=== PATIENT | male | born 1965 | race Hispanic/Latino ===

== ENCOUNTER 2019-01-18 10:59 | Emergency (ER) | payer BC ==
[2019-01-18 11:20] LABS: Absolute Lymphocytes (CBC) 1.9 K/uL (0.7-4.9); Absolute Monocytes 0.4 K/uL (0.1-1.3); Absolute Neutrophil 2.1 K/uL (1.8-8.0); Basophils % 0.9 % (0-1.3); Eosinophils % 6.7 % (0-4.4); Hematocrit 44.9 % (39.6-49.0); Lymphocytes % 40.5 % (15.3-44.8); MPV 9.5 fL (7.6-11.3); Monocytes % 7.9 % (3.3-12.3); RBC Red Blood Cell Count 4.94 M/uL (4.33-5.43)
[2019-01-18 11:23] LABS: Protime INR 0.99
--- NOTE | 2019-01-18 11:41 | RAD REPORT ---
EXAM DESCRIPTION: RAD - Chest Single View - 01/18/2019 11:30 am CLINICAL HISTORY: HYPERTENSION Chest pain. COMPARISON: No comparisons FINDINGS: Portable technique limits examination quality. The lungs are grossly clear. The heart is upper limit of normal in size. No displaced fractures. IMPRESSION: No acute intrathoracic process suspected.
[2019-01-18 11:43] LABS: ALT/SGPT 58 U/L (12-78); AST/SGOT 41 U/L (15-37); Alkaline Phosphatase 107 U/L (45-117); BUN Blood Urea Nitrogen 12 mg/dL (7-18); Bicarbonate 25 mmol/L (21-32); Bilirubin Direct 0.1 mg/dL (0-0.2); Bilirubin Total 0.6 mg/dL (0.2-1.0); Glucose Level 161 mg/dL (74-106); NT PRO-BNP 12 pg/mL (<125); Potassium 3.4 mmol/L (3.5-5.1); Protein, Total 8.4 g/dL (6.4-8.2); Sodium Level 144 mmol/L (136-145); Troponin (Emerg Dept Use Only) < 0.02 ng/mL (0.0-0.045)
[2019-01-18] MEDS ORDERED: NA CHLORIDE 0.9% 1,000 ML ONE (12:00)
[2019-01-18] MEDS ORDERED: ASPIRIN 325 MG TAB ONE (12:00)
[2019-01-18] MEDS ORDERED: LISINOPRIL 10 MG TAB ONE (12:00)
[2019-01-18] MEDS ORDERED: POTASSIUM 25 MEQ EFFERV TAB ONE (13:03)
--- NOTE | 2019-01-18 13:43 | ER ---
Nurse's Notes [facility] Name: Darrell Adams Age: 53 yrs Sex: Male : 1965 Arrival Date: 01/18/2019 Time: 11:01 Bed 7 Private MD: Diagnosis: Acute transient dizziness Presentation: 01/18 11:02 Presenting complaint: EMS states: GENERALIZED WEAKNESS FOR AN HOUR. Transition of care: bp patient was not received from another setting of care. Onset of symptoms was January 18, 2019 at 10:00. Risk Assessment: Do you want to hurt yourself or someone else? Patient reports no desire to harm self or others. Initial Sepsis Screen: Does the patient meet any 2 criteria? No. Patient's initial sepsis screen is negative. Does the patient have a suspected source of infection? No. Patient's initial sepsis screen is negative. Care prior to arrival: Glucose check: 177. 11:02 Method Of Arrival: EMS: [facility] bp 11:02 Acuity: NOBLE 3 bp Triage Assessment: 11:06 General: Appears in no apparent distress. comfortable, obese, Behavior is cooperative, bp appropriate for age, anxious. Pain: Denies pain. EENT: No deficits noted. Neuro: Level of Consciousness is awake, alert, obeys commands, Oriented to person, place, time, situation, Appropriate for age. Cardiovascular: Rhythm is sinus rhythm. Respiratory: Airway is patent Respiratory effort is even, unlabored, Respiratory pattern is regular, symmetrical. GI: No signs and/or symptoms were reported involving the gastrointestinal system. : No signs and/or symptoms were reported regarding the genitourinary system. Derm: No deficits noted. Musculoskeletal: Circulation, motion, and sensation intact. Range of motion: intact in all extremities. Historical: - Allergies: 11:06 No Known Allergies; bp - Home Meds: 11:06 Metformin Oral [Active]; Glimepiride Oral [Active]; Ramipril Oral [Active]; bp - PMHx: 11:06 Diabetes - NIDDM; Hypertension; bp - Immunization history:: Adult Immunizations up to date. - Social history:: Smoking status: Patient/guardian denies using tobacco. - Ebola Screening: : Patient negative for fever greater than or equal to 101.5 degrees Fahrenheit, and additional compatible Ebola Virus Disease symptoms Patient denies exposure to infectious person Patient denies travel to an Ebola-affected area in the 21 days before illness onset No symptoms or risks identified at this time. - Family history:: Mother has/had hypertension, Father has/had diabetes. - Hospitalizations: : No recent hospitalization is reported. Screenin:15 Abuse screen: Denies threats or abuse. Denies injuries from another. Nutritional bp screening: No deficits noted. Tuberculosis screening: No symptoms or risk factors identified. Fall Risk None identified. Assessment: 11:10 General: Appears in no apparent distress. comfortable, obese, Behavior is cooperative, bp appropriate for age, anxious. Pain: Denies pain. Neuro: Level of Consciousness is awake, alert, obeys commands, Oriented to person, place, time, situation, Appropriate for age. Cardiovascular: No deficits noted. Respiratory: Airway is patent Respiratory effort is even, unlabored, Respiratory pattern is regular, symmetrical. GI: No signs and/or symptoms were reported involving the gastrointestinal system. : No signs and/or symptoms were reported regarding the genitourinary system. EENT: No deficits noted. Derm: No deficits noted. Musculoskeletal: Circulation, motion, and sensation intact. Range of motion: intact in all extremities. 12:55 Reassessment: IVF INFUSING, NO ACUTE S/S AT THIS TIME. bp 13:55 Reassessment: PT D/C HOME AMBULATORY WITH FAMILY, DX WITH TRANSIENT DIZZINESS. bp Vital Signs: 11:06 BP 161 / 87; Pulse 95; Resp 12; Temp 98; Pulse Ox 99% ; Weight 142.88 kg; Height 6 ft. bp 1 in. (185.42 cm); 12:26 BP 140 / 79; Pulse 75; Resp 18; Pulse Ox 96% on R/A; hj 12:53 BP 137 / 79; Pulse 80; Resp 16; Pulse Ox 97% ; bp 13:56 BP 146 / 78; Pulse 76; Resp 11; Pulse Ox 98% ; bp 11:06 Body Mass Index 41.56 (142.88 kg, 185.42 cm) bp ED Course: 11:01 Patient arrived in ED. hj 11:01 Toby Del Toro, RN is Primary Nurse. bp 11:04 Triage completed. bp 11:05 Initial lab(s) drawn, by me. Inserted saline lock: 20 gauge in right antecubital area, jb1 using aseptic technique. Blood collected. 11:06 Arm band placed on. bp 11:15 Patient has correct armband on for positive identification. Placed in gown. Bed in low bp position. Call light in reach. Side rails up X2. Adult w/ patient. 11:17 Domingo Gonzalez MD is Attending Physician. wa 11:29 XRAY Chest (1 view) In Process Unspecified. EDMS 13:41 Robin Sierra MD is Referral Physician. wa 13:54 No provider procedures requiring assistance completed. IV discontinued, intact, bp bleeding controlled, No redness/swelling at site. Pressure dressing applied. Administered Medications: 11:45 Drug: NS 0.9% 1000 ml Route: IV; Rate: 1000 ml; Site: right antecubital; bp 13:47 Follow up: IV Status: Completed infusion; IV Intake: 1000ml bp 11:45 Drug: Aspirin Chewable Tablet 324 mg Route: PO; bp 11:59 Follow up: Response: No adverse reaction bp 11:45 Drug: Lisinopril 10 mg Route: PO; bp 11:59 Follow up: Response: No adverse reaction bp 12:45 Drug: Potassium Effervescent Tablet 50 mEq Route: PO; bp 13:47 Follow up: Response: No adverse reaction bp Point of Care Testing: Blood Glucose: 11:05 Blood Glucose: 181 mg/dL; jb1 Ranges: Intake: 13:47 IV: 1000ml; Total: 1000ml. bp Outcome: 13:41 Discharge ordered by . wa 13:55 Discharged to home ambulatory, with family. bp 13:55 Condition: stable 13:55 Discharge instructions given to patient, Instructed on discharge instructions, follow up and referral plans. medication usage, Demonstrated understanding of instructions, follow-up care, medications, Prescriptions given X 1. 13:57 Patient left the ED. bp Signatures: Dispatcher [employer] EDMS Santhosh Kelly jb1 Herber Bhagat, GLORIA CASTRO Domingo Gonzalez MD MD wa Peltier, Brian RN RN bp
--- NOTE | 2019-01-18 13:43 | EDPHYS ---
Physician Documentation [facility] Name: Darrell Adams Age: 53 yrs Sex: Male : 1965 Arrival Date: 01/18/2019 Time: 11:01 Bed 7 Private MD: ED Physician Domingo Gonzalez HPI: 01/18 11:37 This 53 yrs old Male presents to ER via EMS with complaints of lightheadedness.wa 11:37 The patient presents with lightheadedness. Onset: The symptoms/episode began/occurred wa this morning. Context: occurred at home, occurred while the patient was at rest, just prior to the episode the patient experienced no apparent symptoms, per pt, noted lightheaded this AM. states checked his BG level and noted to be 200. out of his glimepride. denies GARCIA, wobbly gait, speech difficulty. denies CP or SOB. . Modifying factors: The symptoms are alleviated by nothing, the symptoms are aggravated by nothing. Associated signs and symptoms: Pertinent negatives: abdominal pain, blurred vision, chest pain, confusion, focal weakness, headache, nausea, palpitations, shortness of breath, tingling, vomiting. Severity of symptoms: At their worst the symptoms were moderate in the emergency department the symptoms have improved. Patient's baseline: Neuro: alert and fully oriented, Motor: no deficits, Ambulation: walks without assistance, Speech: normal, The patient has a previous history of HTN, DM. The patient has experienced a previous episode, last week. The patient has not recently seen a physician. states got BP checked at work and noted to be elevated. Historical: - Allergies: 11:06 No Known Allergies; bp - Home Meds: 11:06 Metformin Oral [Active]; Glimepiride Oral [Active]; Ramipril Oral [Active]; bp - PMHx: 11:06 Diabetes - NIDDM; Hypertension; bp - Immunization history:: Adult Immunizations up to date. - Social history:: Smoking status: Patient/guardian denies using tobacco. - Ebola Screening: : Patient negative for fever greater than or equal to 101.5 degrees Fahrenheit, and additional compatible Ebola Virus Disease symptoms Patient denies exposure to infectious person Patient denies travel to an Ebola-affected area in the 21 days before illness onset No symptoms or risks identified at this time. - Family history:: Mother has/had hypertension, Father has/had diabetes. - Hospitalizations: : No recent hospitalization is reported. ROS: 11:41 Constitutional: Negative for fever, chills, and weight loss, Eyes: Negative for injury, wa pain, redness, and discharge, ENT: Negative for injury, pain, and discharge, Neck: Negative for injury, pain, and swelling, Cardiovascular: Negative for chest pain, palpitations, and edema, Respiratory: Negative for shortness of breath, cough, wheezing, and pleuritic chest pain, Abdomen/GI: Negative for abdominal pain, nausea, vomiting, diarrhea, and constipation, Back: Negative for injury and pain, : Negative for injury, bleeding, discharge, and swelling, MS/Extremity: Negative for injury and deformity, Skin: Negative for injury, rash, and discoloration, Psych: Negative for depression, anxiety, suicide ideation, homicidal ideation, and hallucinations. 11:41 Neuro: Positive for dizziness, weakness, generalized, Negative for gait disturbance, headache, loss of consciousness, speech changes, syncope, tingling. 11:41 All other systems are negative. Exam: 11:42 Constitutional: This is a well developed, well nourished patient who is awake, alert, wa and in no acute distress. Head/Face: Normocephalic, atraumatic. Eyes: Pupils equal round and reactive to light, extra-ocular motions intact. Lids and lashes normal. Conjunctiva and sclera are non-icteric and not injected. Cornea within normal limits. Periorbital areas with no swelling, redness, or edema. ENT: Nares patent. No nasal discharge, no septal abnormalities noted. Tympanic membranes are normal and external auditory canals are clear. Oropharynx with no redness, swelling, or masses, exudates, or evidence of obstruction, uvula midline. Mucous membranes moist. Neck: Trachea midline, no thyromegaly or masses palpated, and no cervical lymphadenopathy. Supple, full range of motion without nuchal rigidity, or vertebral point tenderness. No Meningismus. Chest/axilla: Normal chest wall appearance and motion. Nontender with no deformity. No lesions are appreciated. Cardiovascular: Regular rate and rhythm with a normal S1 and S2. No gallops, murmurs, or rubs. Normal PMI, no JVD. No pulse deficits. Respiratory: Lungs have equal breath sounds bilaterally, clear to auscultation and percussion. No rales, rhonchi or wheezes noted. No increased work of breathing, no retractions or nasal flaring. Abdomen/GI: Soft, non-tender, with normal bowel sounds. No distension or tympany. No guarding or rebound. No evidence of tenderness throughout. Back: No spinal tenderness. No costovertebral tenderness. Full range of motion. Skin: Warm, dry with normal turgor. Normal color with no rashes, no lesions, and no evidence of cellulitis. MS/ Extremity: Pulses equal, no cyanosis. Neurovascular intact. Full, normal range of motion. Psych: Awake, alert, with orientation to person, place and time. Behavior, mood, and affect are within normal limits. 11:42 Neuro: Orientation: is normal, Mentation: is normal, Memory: is normal, Cranial nerves: grossly normal, Cerebellar function: normal finger to nose testing, heel to lassiter testing is normal, able to perform alternating rapid hand movements. Vital Signs: 11:06 BP 161 / 87; Pulse 95; Resp 12; Temp 98; Pulse Ox 99% ; Weight 142.88 kg; Height 6 ft. bp 1 in. (185.42 cm); 12:26 BP 140 / 79; Pulse 75; Resp 18; Pulse Ox 96% on R/A; hj 12:53 BP 137 / 79; Pulse 80; Resp 16; Pulse Ox 97% ; bp 13:56 BP 146 / 78; Pulse 76; Resp 11; Pulse Ox 98% ; bp 11:06 Body Mass Index 41.56 (142.88 kg, 185.42 cm) bp MDM: 11:[address] 11:42 Differential diagnosis: cardiac arrhythmia, CVA, generalized weakness, hypovolemia, wa idiopathic dizziness, TIA, vertigo. 13:38 Data reviewed: vital signs, nurses notes. Test interpretation: by ED physician or wa midlevel provider: EKG: interp by la: HR 84. nml sinus. nml axis. no acute dysrhythmic changes. Labs noted for mild hyperglycemia and hypokalemia. Response to treatment: the patient's symptoms have resolved after treatment. ED course: pt received fluid bolus. 10 mg po lisinopril. replaced K. pt walked in ED. symptoms complete resolution of symptoms. stated he's hungry and would like to go get something to eat. will d/c with close f/u. 13:45 Test interpretation: by ED physician or midlevel provider: CXR negative. wa 01/18 11:09 Order name: Basic Metabolic Panel; Complete Time: 12:22 bp 01/18 11:09 Order name: CBC with Diff; Complete Time: 11:43 bp 01/18 11:09 Order name: LFT's; Complete Time: 12:22 bp 01/18 11:09 Order name: Magnesium; Complete Time: 12:22 bp 01/18 11:09 Order name: NT PRO-BNP; Complete Time: 12:22 bp 01/18 11:09 Order name: PT-INR; Complete Time: 13:45 bp 01/18 11:09 Order name: Troponin (emerg Dept Use Only); Complete Time: 12:22 bp 01/18 11:09 Order name: XRAY Chest (1 view); Complete Time: 11:43 bp 01/18 11:09 Order name: EKG; Complete Time: 11:10 bp 01/18 13:34 Order name: Urine Dipstick--Ancillary (enter results) bd 01/18 11:09 Order name: Cardiac monitoring; Complete Time: 11:11 bp 01/18 11:09 Order name: EKG - Nurse/Tech; Complete Time: 11:11 bp 01/18 11:09 Order name: IV Saline Lock; Complete Time: 11:11 bp 01/18 11:09 Order name: Labs collected and sent; Complete Time: 11:11 bp 01/18 11:09 Order name: O2 Per Protocol; Complete Time: 11:11 bp 01/18 11:09 Order name: O2 Sat Monitoring; Complete Time: 11:11 bp 01/18 13:15 Order name: Urine Dipstick-Ancillary (obtain specimen); Complete Time: 13:47 ct Administered Medications: 11:45 Drug: NS 0.9% 1000 ml Route: IV; Rate: 1000 ml; Site: right antecubital; bp 13:47 Follow up: IV Status: Completed infusion; IV Intake: 1000ml bp 11:45 Drug: Aspirin Chewable Tablet 324 mg Route: PO; bp 11:59 Follow up: Response: No adverse reaction bp 11:45 Drug: Lisinopril 10 mg Route: PO; bp 11:59 Follow up: Response: No adverse reaction bp 12:45 Drug: Potassium Effervescent Tablet 50 mEq Route: PO; bp 13:47 Follow up: Response: No adverse reaction bp Point of Care Testing: Blood Glucose: 11:05 Blood Glucose: 181 mg/dL; jb1 Ranges: Critical Glucose Levels:Adult <50 mg/dl or >400 mg/dl <40 mg/dl or >180 mg/dl Disposition: 01/18/19 13:41 Discharged to Home. Impression: Acute transient dizziness. - Condition is Stable. - Discharge Instructions: Dizziness, [id number]. - Prescriptions for Potassium Chloride 20 meq Oral Packet - take 1 packet by ORAL route once daily 1 packet in 6 (six) ounces of water or juice; Take after meal; 6 packet. - Medication Reconciliation Form, Thank You Letter, Antibiotic Education, Prescription Opioid Use form. - Follow up: Robin Sierra MD; When: 2 - 3 days; Reason: Recheck today's complaints. - Problem is new. - Symptoms are resolved. - Notes: please return immediatley if your symptoms reoccur. otherwise see your doctor within 2-3 days for further evaluation. take a couple days off from work to rest. Signatures: Dispatcher [employer] EDMS Domingo Gonzalez MD MD wa Peltier, Brian, RN RN bp Corrections: (The following items were deleted from the chart) 13:57 13:41 01/18/2019 13:41 Discharged to Home. Impression: Acute transient dizziness. bp Condition is Stable. Forms are Medication Reconciliation Form, Thank You Letter, Antibiotic Education, Prescription Opioid Use. Follow up: Robin Sierra; When: 2 - 3 days; Reason: Recheck today's complaints. Problem is new. Symptoms are resolved. wa
--- NOTE | 2019-01-18 14:20 | EKG ---
Test Date: 2019-01-18 Test Time: 11:17:48 Waterproofing Machine Operator: AMAN MEASUREMENT RESULTS: Intervals: Rate: 84 MS: 146 QRSD: 90 QT: 374 QTc: 441 [place]: P: 46 MS: 146 QRS: 34 T: 42 INTERPRETIVE STATEMENTS: Normal sinus rhythm Normal ECG Compared to ECG 05/31/2000 16:04:00 No significant changes Electronically Signed On 01-18-19 14:19:13 CDT by Robin iSerra
[2019-01-18 16:04] LABS: Urine Blood NEGATIVE (NEG); Urine Glucose NEGATIVE (NEG); Urine Protein NEGATIVE (NEG); Urine Specific Gravity 1.025 (1.005-1.030)
== END 2019-01-18 13:57 | disposition home or self-care (01) ==
LOC: ER 10:59
DX: R42 Dizziness and giddiness (principal); E11.9 Type 2 diabetes mellitus without complications; I10 Essential (primary) hypertension; Z79.84 Long term (current) use of oral hypoglycemic drugs
CPT/HCPCS: 36415; 71045; 80048; 80076; 81003; 82962; 83735; 83880; 84484; 85025; 85610; 93005; 96360; 96361; 99284; J7030

== ENCOUNTER 2020-11-14 15:38 | Emergency (ER) | payer SELFPAY ==
--- NOTE | 2020-11-14 21:24 | ER ---
Nurse's Notes [facility] Name: Darrell Adams Age: 55 yrs Sex: Male : 1965 Arrival Date: 11/14/2020 Time: 15:39 Bed Waiting Private MD: Diagnosis: Presentation: 11/14 15:46 Chief complaint: Patient states: "I was sitting on the bed and I felt dizzy and my jd3 blood pressure was super high.". Coronavirus screen: At this time, the client does not indicate any symptoms associated with coronavirus-19. Ebola Screen: Patient negative for fever greater than or equal to 101.5 degrees Fahrenheit, and additional compatible Ebola Virus Disease symptoms. Initial Sepsis Screen: Does the patient meet any 2 criteria? No. Patient's initial sepsis screen is negative. Does the patient have a suspected source of infection? No. Patient's initial sepsis screen is negative. Risk Assessment: Do you want to hurt yourself or someone else? Patient reports no desire to harm self or others. Onset of symptoms was November 14, 2020. 15:46 Method Of Arrival: Ambulatory jd3 15:46 Acuity: NOBLE 3 jd3 Historical: - Allergies: 15:48 No Known Allergies; jd3 - PMHx: 15:48 Diabetes - NIDDM; Hypertension; jd3 - Immunization history:: Adult Immunizations up to date. - Social history:: Smoking status: Patient denies any tobacco usage or history of. Vital Signs: 15:48 BP 158 / 87; Pulse 100; Resp 18 S; Temp 98.2(TE); Pulse Ox 99% on R/A; Weight 136.08 jd3 kg; Height 6 ft. 2 in. (187.96 cm); Pain 0/10; 15:48 Body Mass Index 38.52 (136.08 kg, 187.96 cm) jd3 ED Course: 15:39 Patient arrived in ED. ds1 15:48 Triage completed. jd3 15:49 Arm band placed on. jd3 21:23 Krystin Bland, RN is Primary Nurse. iw Administered Medications: No medications were administered Outcome: 21:23 Eloped from waiting room, before seeing physician iw 21:23 Patient left the ED. iw Signatures: Yee Wallace ds1 Krystin Bland, GLORIA RN iw Horace Douglass RN RN jd3
[2020-11-14 21:46] VITALS: BP 158/87; TEMP 98.2; O2SAT 99
== END 2020-11-14 21:23 | disposition left against medical advice (07) ==
LOC: ER 15:38
DX: R42 Dizziness and giddiness (principal); I10 Essential (primary) hypertension; E11.9 Type 2 diabetes mellitus without complications; Z53.21 Procedure and treatment not carried out due to patient leaving prior to being seen by health care provider
CPT/HCPCS: 99281

== ENCOUNTER 2022-06-17 07:07 | Day surgery (SDC) | payer BC ==
[2022-06-14 10:33] LABS: Absolute Lymphocytes (CBC) 1.4 K/uL (0.7-4.9); Hematocrit 42.7 % (39.6-49.0); MCV 90.7 fL (80-100); MPV 8.6 fL (7.6-11.3)
[2022-06-14 10:51] LABS: Bilirubin Direct 0.2 mg/dL (0-0.2); Bilirubin Total 0.7 mg/dL (0.2-1.0); Potassium 4.3 mmol/L (3.5-5.1); Protein, Total 8.3 g/dL (6.4-8.2)
--- NOTE | 2022-06-14 11:22 | RAD REPORT ---
EXAM DESCRIPTION: RAD - Chest Pa And Lat (2 Views) - 06/14/2022 10:10 am CLINICAL HISTORY: Pre op pending cholecystectomy, history of hypertension, prediabetic COMPARISON: Portable 01/18/2019 TECHNIQUE: Frontal and lateral views of the chest were obtained. FINDINGS: The lungs are clear of a peripheral mass or consolidation. No acute failure or volume over load findings. Interstitial pattern is not clearly different from the prior study. No jonathan mass or ly mphadenopathy seen. Heart size is normal and central vasculature is within normal limits. No pleural effusion or pneumot horax seen. No acute bony finding noted. No aortic abnormality. IMPRESSION: No acute cardiopulmonary process. No significant change from comparison study.
[2022-06-14 11:45] LABS: SARS-CoV-2 Antigen Rapid Res Negative (Negative)
--- NOTE | 2022-06-14 12:28 | EKG ---
Test Date: 2022-06-14 Test Time: 09:56:30 Concrete Hopper Operator: JOE MEASUREMENT RESULTS: Intervals: Rate: 63 NH: 132 QRSD: 90 QT: 406 QTc: 415 [place]: P: 32 NH: 132 QRS: 54 T: 49 INTERPRETIVE STATEMENTS: Normal sinus rhythm Normal ECG Compared to ECG 01/18/2019 11:17:48 No significant changes Electronically Signed On 06-14-22 12:27:41 CDT by Omar Agrawal
[2022-06-17] MEDS ORDERED: Ringers Lactate 1,000 ML IV ONE (07:23)
[2022-06-17] MEDS ORDERED: CEFOXITIN SODIUM 1 GM/VIAL ONE (07:23)
[2022-06-17] MEDS ORDERED: propofoL 200 MG/20 ML VIAL IV ONE (08:27)
[2022-06-17] MEDS ORDERED: MIDAZOLAM HCL 2 MG/2 ML INJ ONE (08:27)
[2022-06-17] MEDS ORDERED: LIDOCAINE 2% MPF 5 ML VIAL ONE (08:27)
[2022-06-17] MEDS ORDERED: ROCURONIUM 50 MG/5 ML VIAL IV ONE (08:28)
[2022-06-17] MEDS ORDERED: GLYCOPYRROLATE 0.2 MG/ML SYR ONE (08:28)
[2022-06-17] MEDS ORDERED: NEOSTIGMINE 1 MG/ML -10 ML VIAL ONE (08:30)
[2022-06-17] MEDS ORDERED: ONDANSETRON 4 MG/2 ML VIAL ONE (08:30)
[2022-06-17] MEDS ORDERED: FENTANYL CITR 100 MCG/2 ML ONE ×2 (08:41→09:35)
[2022-06-17] MEDS ORDERED: SUCCINYLCHOLINE 20 MG/ML (10 ML) IV ONE (08:58)
[2022-06-17] MEDS ORDERED: dexAMETHasone 10 MG/ML VIAL ONE (09:29)
[2022-06-17] MEDS ORDERED: EPHEDRINE SULF 50 MG/ML VIAL ONE (09:30)
--- NOTE | 2022-06-17 09:48 | P.BOP ---
Preoperative diagnosis: symptomatic cholelithiasis, RUQ abd pain Postoperative diagnosis: same Primary procedure: LAparoscopic cholecystectomy Nylon Winder: BRENT RIVAS (HEAD OF ACQUISITIONS) Estimated blood loss: <10cc Specimen: gb Findings: as above Anesthesia: General Complications: None Transferred to: Recovery Room Condition: Good
[2022-06-17] MEDS ORDERED: KETOROLAC 30 MG/ML INJ ONE (09:55)
[2022-06-17 11:01] VITALS: BP 144/72; TEMP 97.4; O2SAT 97
[2022-06-17] MEDS ORDERED: CODEINE 30MG/APAP 300MG TAB PO ONE (11:08)
[2022-06-17] MEDS ORDERED: CODEINE 30MG/APAP 300MG TAB ONE (11:21)
--- NOTE | 2022-06-17 14:25 | DS ---
Date of Discharge: 06/17/2022 Diagnoses: Symptomatic cholelithiasis, right upper quadrant abdominal pain. Procedure: Laparoscopic cholecystectomy. Disposition: Home. Activity: As tolerated. No heavy lifting. Plan: Follow up in my office in 1 week. Call for appointment at [phone]. Keep area dry for 48 sneha rs, then may shower. Keep Steri-Strips intact. Medications: See orders. MANUELITO/REAL Voice ID: [id number] Report ID: [id number]
--- NOTE | 2022-06-17 14:25 | OP ---
Date of Procedure: 06/17/2022 Surgeon: Herber Hare MD Business Machine Operator: EASTON Hernandez. Preoperative Diagnoses: Symptomatic cholelithiasis, right upper quadrant abdominal pain. Postoperative Diagnoses: Symptomatic cholelithiasis, right upper quadrant abdominal pain. Procedure: Laparoscopic cholecystectomy. Estimated Blood Loss: Less than 10 mL. Anesthesia: General plus local. Complications: None. Indication: This is the case of a 56-year-old patient, who comes to us with above diagnoses. Fully explained the benefits, alternatives, and risks of laparoscopic possible open cholecystectomy, which include, but not limited to infection, bleeding, damage to adjacent structures, anesthesia complicati on, choledocholithiasis, bile leak, pancreatitis, WA, and even . He also understands this may n ot relieve any symptoms. He might need more than one surgical intervention. He understood, signed a consent. Procedure In Detail: The patient was brought to the operating room, placed in supine position. Anes thesia was done without complication. Abdominal area was prepped and draped in the usual sterile fas hion. Marcaine 0.5% was injected for local anesthetic followed by sharp incision of the skin in the infraumbilical region. The incision was carried down to fascia, which was opened under direct vision . Peritoneum was encountered, opened under direct vision. Vicryl #1 placed inside the fascia. Christiano on trocar was carefully introduced. Pneumoperitoneum was obtained. I placed 3 more trocars, 5 mm ea ch one of them, 1 in the epigastric area and 2 in the right upper quadrant using same technique, whic h consisted of local anesthetic, sharp incision of the skin and introduction of the trocars under dir ect vision. This allowed me to visualize the area of the gallbladder. There were some adhesions due to looked like a chronic cholecystitis on the gallbladder, so carefully those adhesions were removed with the help of Endo Irene and Bovie cauterizer. A grasper was placed in the fundus of the gallbl adder, another grasper in the infundibulum, retracting the gallbladder in the inferolateral fashion, exposing the triangle of Calot, and obtaining critical view. Cystic duct and cystic artery were ignacio rly isolated, freed circumferentially and a connection between those and the gallbladder were clearly identified. I proceeded to ligate those by using at least 3 clips proximal, 1 clip distal, ligation in the middle. Same was done with the cystic artery. No bile leak. No bleeding. The gallbladder was removed from the liver using Bovie cauterizer and removed from the abdominal cavity using EndoCat ch through the umbilical incision. The area was inspected once again. No bile leak. No bleeding. At that moment, I proceeded to remove the trocars under direct vision. Deflated the pneumoperitoneum . Closed the fascia with #1 Vicryl. Irrigated subcutaneous tissue, closed that with 3-0 chromic and skin in a subcuticular fashion with 3-0 chromic and Steri-Strips on top. Sponge count, instrument c ounts correct. The patient tolerated the procedure well. The patient on his way to recovery in stab le condition. MANUELITO/REAL Voice ID: [id number] Report ID: [id number]
== END 2022-06-17 11:50 | disposition home or self-care (01) ==
LOC: OR 07:07
PROVIDERS: ATTEND Surgery
PROC: 0FT44ZZ Resection of Gallbladder, Percutaneous Endoscopic Approach (ICD-10-PCS; principal; 2022-06-17 09:00)
DX: K80.10 Calculus of gallbladder with chronic cholecystitis without obstruction (principal); I10 Essential (primary) hypertension; E78.00 Pure hypercholesterolemia, unspecified; G47.33 Obstructive sleep apnea (adult) (pediatric); Z99.81 Dependence on supplemental oxygen; Z20.822 Contact with and (suspected) exposure to COVID-19
CPT/HCPCS: 93005; 85025; 80048; 36415; 82150; 80076; 88304; 83690; 71046; 87811; 47562; J2704; J2710; J0330; J2001; J2250; J3010 ×2; J1100; J7120; J0694; J2405

== ENCOUNTER → 2023-10-09 | Emergency (ER) | payer BC, OTHER ==
[~2023-10-09] MED LIST: MECLIZINE HCL 12.5 MG TAB ONE; NA CHLORIDE 0.9% 1,000 ML ONE
--- OUTSIDE RECORDS SUMMARY | 2023-10-09 07:43 | XMS REPORT | Continuity of Care Document ---
Author Name Unknown Address [address] [facility] [place] [address] [facility] Address [address] [facility] [address] [place] [address] Care Team Providers Care Tie Up Worker Name Role Phone Domingo Hassan Primary Care Physician [phone] Anita Trejo MD Attending Clinician [phone] Oliver Mckenzie MD Attending Clinician [phone] FRANSICO VANN Attending Clinician Fransico Bourgeois Attending Clinician [phone] Payers Payer Name Policy Type Policy Number Effective Date Expirati on Date Source [place] OUT OF [place] [id number] 2022 00:00:00 Problems Condition Name Condition Details Condition Category Status Onset Date Resolution Date Last Treatment Date Treating Clinician Comments Source No known active problems No known active problems Disease [facility] Social History Social Habit Start Date Stop Date Quantity Comments Source Exposure to SARS-CoV-2 (event) 2023-02-03 00:00:00 2023-02-13 14:49:00 Unable to assess [facility] Alcohol intake 2023-02-13 00:00:00 2023-02-13 00:00:00 Lifetime non-drinker (finding) [facility] Tobacco use and exposure 2023-01-01 00:00:00 2023-01-01 00:00:00 Smokeless tobacco non-user [facility] Sex Ass[birth year] At 1965 00:00:00 1965 00:00:00 [facility] Smoking Status Start Date Stop Date Source Never smoked tobacco [facility] Medications Ordered Medication Name Filled Medication Name Start Date Stop Date Current Medication? Ordering Clinician Indication Dosage Frequency Signature (SIG) Comments Components Source methylPREDN ISolone (Medrol Dospak) 4 MG tablets 10-16 00:00: 00 Yes [id number] Follow schedule on package instructio ns [facility] methylPREDN ISolone (Medrol Dospak) 4 MG tablets 10-16 00:00: 00 Yes [id number] Follow schedule on package instructio ns [facility] methylPREDN ISolone (Medrol Dospak) 4 MG tablets 10-16 00:00: 00 Yes [id number] Follow schedule on package instructio ns [facility] methylPREDN ISolone (Medrol Dospak) 4 MG tablets 10-16 00:00: 00 Yes [id number] Follow schedule on package instructio ns [facility] methylPREDN ISolone (Medrol Dospak) 4 MG tablets 10-16 00:00: 00 Yes [id number] Follow schedule on package instructio ns [facility] Vital Signs Vital Name Observation Time Observation Value Comments S ource Body height 2023-02-13 20:08:00 188 cm [facility] Body weight 2023-02-13 20:08:00 124.739 kg [facility] BMI 2023-02-13 20:08:00 35.31 kg/m2 [facility] Systolic blood pressure 2023-01-15 15:50:00 148 mm[Hg] [facility] Diastolic blood pressure 2023-01-15 15:50:00 80 mm[Hg] [facility] Heart rate 2023-01-15 15:50:00 74 /min [facility] Body temperature 2023-01-15 15:50:00 36.56 Brittny [facility] Body height 2023-01-15 15:50:00 188 cm [facility] Body weight 2023-01-15 15:50:00 131.09 kg [facility] BMI 2023-01-15 15:50:00 37.11 kg/m2 [facility] Systolic blood pressure 2023-01-01 19:26:00 152 mm[Hg] [facility] Diastolic blood pressure 2023-01-01 19:26:00 82 mm[Hg] [facility] Heart rate 2023-01-01 19:26:00 72 /min [facility] Body temperature 2023-01-01 19:26:00 36.67 Brittny [facility] Body height 2023-01-01 19:26:00 188 cm [facility] Body weight 2023-01-01 19:26:00 129.729 kg [facility] BMI 2023-01-01 19:26:00 36.72 kg/m2 [facility] Body height 2022-10-16 19:18:00 188 cm [facility] Body weight 2022-10-16 19:18:00 127.007 kg [facility] BMI 2022-10-16 19:18:00 35.95 kg/m2 [facility] Procedures Procedure Date / Time Performed Performing Clinicia n Source POCT GLUCOSE 2023-01-15 15:59:13 [facility] Start Date/Time End Date/Time Encounter Type Admission Type Attending [facility] Care Facility Care Department Encounter ID Source 2023-01-30 17:47:17 Outpatient [facility] [id number] [facility] 2023-01-24 15:46:00 Outpatient [facility] [id number] [facility] 2023-01-17 12:48:07 Outpatient [facility] [id number] [facility] 2023-01-14 09:59:42 Outpatient [facility] [id number] [facility] 2023-01-09 11:57:28 Outpatient [facility] [id number] [facility] 2023-01-02 16:12:04 Outpatient [facility] [id number] [facility] 2022-12-30 09:36:28 Outpatient [facility] [id number] [facility] 2022-12-25 09:00:39 Outpatient [facility] [id number] [facility] 2022-11-07 10:25:08 Outpatient [facility] [id number] [facility] 2022-10-16 09:47:19 Outpatient [facility] [id number] [facility] 2022-10-15 11:40:43 Outpatient [facility] [id number] [facility] 2022-10-11 10:34:34 Outpatient [facility] [id number] [facility] 2022-10-10 09:54:55 Outpatient [facility] [id number] [facility] 2023-02-13 15:00:00 2023-02-13 15:17:53 Office Visit Anita Trejo [facility] 1..[id number] [facility] 2023-02-06 15:00:00 2023-02-06 15:00:00 Outpatient ANITA TREJO [facility] [id number] [facility] 2023-01-15 11:00:00 2023-01-15 15:36:44 Procedure Visit ANITA TREJO [facility] 1..840.114 [id number] [facility] 2023-01-15 10:00:00 2023-01-15 15:36:44 Outpatient ANITA TREJO [facility] [id number] [facility] 2023-01-01 14:20:00 2023-01-01 15:19:43 Office Visit Anita Trejo [facility] 1..840.114 [id number] [facility] 2022-11-08 10:15:00 2022-11-08 10:24:30 Office Visit Oliver Mckenzie [facility] 1..840.114 [id number] [facility] 2022-10-30 08:39:00 2022-10-30 23:59:00 Outpatient FRANSICO VANN [address] [facility] 2022-10-16 13:30:00 2022-10-16 14:24:37 Office Visit Fransico Vann [facility] [id number] [facility] 2022-10-16 00:00:00 2022-10-16 14:10:09 Outpatient OLIVER MCKENZIE [facility] [id number] [facility] 2022-10-16 13:25:00 2022-10-16 13:52:35 Outpatient OLIVER MCKENZIE [facility] [id number] [facility] Results Test Description Test Time Test Comments Results Result Co mments Source [facility]
[2023-10-09 08:20] LABS: Absolute Lymphocytes (CBC) 1.2 K/uL (0.7-4.9); Hematocrit 41.7 % (39.6-49.0); MCV 91.4 fL (80-100); MPV 7.9 fL (7.6-11.3); Platelets 150 thou/uL (152-406); RBC Red Blood Cell Count 4.57 M/uL (4.33-5.43)
[2023-10-09 08:34] LABS: Potassium 3.8 mEq/L (3.5-5.1)
--- NOTE | 2023-10-09 08:43 | RAD REPORT ---
EXAM DESCRIPTION: Selina Angio10/09/2023 8:28 am CLINICAL HISTORY: Dizziness/hypertension COMPARISON: None TECHNIQUE: 100 cc Isovue [address] angiogram of the neck was obtained. 3D MIPS reconstruction performed. All CT scans are performed using dose optimization technique as appropriate and may include automated exposure control or mA/KV adjustment according to patient size. FINDINGS: Portions of brachiocephalic artery and proximal vertebral arteries are poorly visualized s econdary to artifact. The common carotid, internal carotid and external carotid arteries bilaterally appear unremarkable Left vertebral artery is hypoplastic. Vertebral arteries unremarkable No dissection is seen. No high-grade stenosis IMPRESSION: No significant abnormality is displayed [place] crieria Mild stenosis 0 to 49 % Moderate stenosis 50-69% Severe stenosis 70-99%
--- NOTE | 2023-10-09 08:46 | RAD REPORT ---
EXAM DESCRIPTION: CT - Ct Stroke Brain Wo Cont - 10/09/2023 8:29 am CLINICAL HISTORY: Dizziness COMPARISON: none TECHNIQUE: Computed axial tomography of the head was obtained. All CT scans are performed using dose optimization technique as appropriate and may include automated exposure control or mA/KV adjustment according to patient size. FINDINGS: An intracranial bleed is not seen . The ventricles are normal in caliber. No extra-axial fluid collection is noted. No significant hyperdensity within the brain seen Fluid within the sinuses/ mastoids is not seen. IMPRESSION: No acute intracranial abnormality is seen. If patient's symptoms persist MRI of the bra in would be recommended Dr Drew of the emergency room was notified at 8:27 a.m. October 09, 2023
--- NOTE | 2023-10-09 08:52 | RAD REPORT ---
EXAM DESCRIPTION: CTHead angio10/09/2023 8:28 am CLINICAL HISTORY: Dizziness/hypertension COMPARISON: none TECHNIQUE: 100 cc Isovue [address] angiogram of the head was obtained. 3D MIPS reconstruction performed. All CT scans are performed using dose optimization technique as appropriate and may include automated exposure control or mA/KV adjustment according to patient size. FINDINGS: Hypoplastic A1 segment left anterior cerebral artery. The basilar, anterior cerebral, middle cerebral and posterior cerebral arteries do not demonstrate a significant stenosis Mild calcified plaque distal internal carotid arteries An aneurysm is not seen No large vessel occlusion IMPRESSION: No significant abnormality is displayed
--- NOTE | 2023-10-09 09:06 | RAD REPORT ---
EXAM DESCRIPTION: MRI - Brain Wo Cont - 10/09/2023 8:51 am CLINICAL HISTORY: Dizziness COMPARISON: Head CT October 09, 2023 TECHNIQUE: Axial, sagittal, and coronal magnetic resonance images of the brain were obtained. FINDINGS: No significant abnormal signal within the brain Diffusion-weighted/ADC mapping does not reveal evidence of acute infarction. The ventricles are normal caliber. An extra-axial fluid collection is not noted. Fluid within the sinuses/mastoids is not seen IMPRESSION: No acute intracranial abnormality noted
--- NOTE | 2023-10-09 10:22 | RAD REPORT ---
EXAM DESCRIPTION: Kaden Single View10/09/2023 9:50 am CLINICAL HISTORY: Palpitations COMPARISON: 2021 FINDINGS: The lungs appear clear of acute infiltrate. The heart is normal size 2 centimeter all radiopaque structure overlies the lower neck near midline of uncertain etiology. It was present on the prior exam
--- NOTE | 2023-10-09 10:25 | ER ---
Nurse's Notes [facility] Name: Darrell Adams Age: 58 yrs Sex: Male : 1965 Arrival Date: 10/09/2023 Time: 07:39 Bed 20 Private MD: Diagnosis: Vertigo;Dizziness and giddiness Presentation: 10/09 07:48 Chief complaint: Patient states: "when I got up this morning, I felt unsteady, my blood 5 pressure was 186/88, and I felt my heart racing". Pt states "I feel like my head is congested and I can only hear out of one ear so I might have an ear infection". 07:48 Coronavirus screen: congestion. Ebola Screen: Patient denies travel to an [facility] Ebola-affected area in the 21 days before illness onset. Initial Sepsis Screen: Does the patient meet any 2 criteria? No. Patient's initial sepsis screen is negative. Does the patient have a suspected source of infection? No. Patient's initial sepsis screen is negative. Risk Assessment: Do you want to hurt yourself or someone else? Patient reports no desire to harm self or others. Onset of symptoms was October 09, 2023. 07:48 Acuity: NOBLE 3 aa5 07:48 Method Of Arrival: Ambulatory aa5 Historical: - Allergies: 07:53 No Known Allergies; ph - PMHx: 07:53 Diabetes - NIDDM; Hypertension; ph - PSHx: 07:56 Cholecystectomy; cervical disc; aa5 - Immunization history:: Adult Immunizations unknown. - Social history:: Smoking status: Patient denies any tobacco usage or history of. - Family history:: not pertinent. - Hospitalizations: : No recent hospitalization is reported. Screenin:[address] [facility] ED Fall Risk Assessment (Adult) History of falling in the last 3 months, ph including since admission No falls in past 3 months (0 pts) Score/Fall Risk Level 0 - 2 = Low Risk Oriented to surroundings, Maintained a safe environment, Provided non-skid footwear, Hourly rounding (assess needs \\T\\ fall precautionary measures) done. Abuse screen: Denies threats or abuse. Denies injuries from another. Nutritional screening: No deficits noted. Tuberculosis screening: No symptoms or risk factors identified. 08:00 VAN Screening: Arm Drift: Patient shows no arm weakness. Patient is VAN negative. ph 08:06 [place] Swallow Protocol Exclusion Criteria: Exclusion Criteria Result: Proceed Brief ph Cognitive Screen What is your name? Normal, Where are you right now? Normal, What year is it? Normal. Oral Mechanism Examination Facial Symmetry: Normal, Motion: Normal, Lip Closure: Normal, Oral Mechanism Result: Normal. 3 oz Water Swallow Challenge: Pt able to drink all water without stopping, coughing, choking or throat clearing: Yes Result: PASS. Assessment: 08:04 General: Appears in no apparent distress. Behavior is calm, cooperative, Denies fever, ph feeling ill. Pain: Denies pain. Neuro: Level of Consciousness is awake, alert, obeys commands, Oriented to person, place, time, situation, Reports dizziness. Cardiovascular: Reports lightheadedness, palpitations, Denies chest pain, nausea, shortness of breath, Capillary refill < 3 seconds in bilateral fingers Patient's skin is warm and dry. Respiratory: Airway is patent Respiratory effort is even, unlabored, Respiratory pattern is regular, symmetrical. Derm: Skin is pink, warm \\T\\ dry. 08:16 Reassessment: Pt in radiology for CT. ph 09:15 Reassessment: Patient appears in no apparent distress at this time. Patient and/or ph family updated on plan of care and expected duration. Pain level reassessed. Patient is alert, oriented x 3, equal unlabored respirations, skin warm/dry/pink. 10:18 Reassessment: Patient appears in no apparent distress at this time. Patient and/or ph family updated on plan of care and expected duration. Pain level reassessed. Patient is alert, oriented x 3, equal unlabored respirations, skin warm/dry/pink. 10:49 Reassessment: Patient appears in no apparent distress at this time. Patient and/or ph family updated on plan of care and expected duration. Pain level reassessed. Patient is alert, oriented x 3, equal unlabored respirations, skin warm/dry/pink. Patient states feeling better. Patient states symptoms have improved. Vital Signs: 07:48 BP 149 / 89; Pulse 84; Resp 18 S; Pulse Ox 100% on R/A; Weight 129.27 kg (R); Height 6 aa5 ft. 2 in. (R); 09:16 BP 147 / 85; Pulse 76; Resp 18; Pulse Ox 98% on R/A; ph 10:22 BP 144 / 80; Pulse 75; Resp 16; Pulse Ox 99% on R/A; ph 10:50 Temp 97.5; ph 07:48 Body Mass Index 36.59 (129.27 kg, 187.96 cm) aa5 NIH Stroke Scale Scores: 08:00 NIHSS Score: 0 ph ED Course: 07:47 Patient arrived in ED. mg5 07:47 Marcos Drew MD is Attending Physician. rn 07:53 Elaine Phoenix RN is Primary Nurse. ph 07:54 Arm band placed on Patient placed in an exam room, on a stretcher, on food and beverage outlets manager, ph on pulse oximetry. 07:54 Patient has correct armband on for positive identification. Placed in gown. Bed in low ph position. Call light in reach. Side rails up X 1. Client placed on continuous cardiac and pulse oximetry monitoring. NIBP monitoring applied. Door closed. Noise minimized. Warm blanket given. 07:56 Triage completed. aa5 08:11 Inserted saline lock: 20 gauge in right antecubital area, using aseptic technique. ds4 Blood collected. 08:30 CT Head Angio In Process Unspecified. EDMS 08:30 CT Neck Angio In Process Unspecified. EDMS 08:30 CT Stroke Brain w/o Contrast In Process Unspecified. EDMS 08:42 MRI - Brain Wo Cont In Process Unspecified. EDMS 08:49 Radiology exam delayed due to patient in MRI. md2 09:52 Stroke CXR 1 View In Process Unspecified. EDMS 10:25 Adithya Lebron MD is Referral Physician. rn 10:50 No provider procedures requiring assistance completed. IV discontinued, intact, ph bleeding controlled, No redness/swelling at site. Pressure dressing applied. Administered Medications: 09:05 Drug: NS 0.9% IV 1000 ml IV at 1000 ml once Route: IV; Rate: 1000 ml; Site: right ph antecubital; 10:50 Follow up: Response: No adverse reaction; IV Status: Completed infusion; IV Intake: ph 1000ml 09:05 Drug: Meclizine PO 50 mg PO once Route: PO; ph 10:49 Follow up: Response: No adverse reaction ph Medication: 07:55 VIS not applicable for this client. ph Intake: 10:50 IV: 1000ml; Total: 1000ml. ph Outcome: 10:25 Discharge ordered by . rn 10:50 Discharged to home ambulatory, ph 10:50 Condition: good 10:50 Discharge instructions given to patient, Instructed on discharge instructions, follow up and referral plans. medication usage, Demonstrated understanding of instructions, follow-up care, medications, Prescriptions given X 2, 10:53 Patient left the ED. NIH Stroke Scale - NIH Stroke Score Date: 10/09/2023 Time: 08:00 Total Score = 0 10. Dysarthria (speech clarity - read or repeat words) - 0(Normal) 11. Extinction and Inattention (visual/tactile/auditory/spatial/personal) - 0(No abnormality) 1a. Level of Consciousness (LOC) - 0(Alert) 1b. Level of Consciousness (LOC) (Month \\T\\ Age) - 0(Both) 1c. LOC Commands (Open \\T\\ Closes Eyes/Hospital Admitting Clerk) - 0(Both) 2. Best Gaze (Lateral Gaze Paresis) - 0(Normal) 3. Visual Field Loss - 0(No visual loss) 4. Facial Palsy - 0(Normal) 5a. Left Arm: Motor (10-second hold) - 0(No drift) 5b. Right Arm: Motor (10-second hold) - 0(No drift) 6a. Left Leg: Motor (5-second hold - always test supine) - 0(No drift) 6b. Right Leg: Motor (5-second hold - always test supine) - 0(No drift) 7. Limb Ataxia (finger/nose \\T\\ heel/lassiter - test with eyes open) - 0(Absent) 8. Sensory Loss (pinprick arms/legs/face) - 0(Normal) 9. Best Language: Aphasia (description/naming/reading) - 0(No aphasia) Initials: ph Signatures: Dispatcher [employer] EDMarcos Garcia MD MD rn Rhiannon Poe RN RN [email or web address] Efren Almanza 4 Elaine Phoenix RN RN Kacie Antoine md2 Tory Cheatham mg5
--- NOTE | 2023-10-09 10:25 | EDPHYS ---
Physician Documentation [facility] Name: Darrell Adams Age: 58 yrs Sex: Male : 1965 Arrival Date: 10/09/2023 Time: 07:39 Bed 20 Private MD: ED Physician Marcos Drew HPI: 10/09 08:19 This 58 yrs old Male presents to ER via Ambulatory with complaints of rn Palpitations, Dizziness. 08:19 The patient presents with dizziness, feeling off balance. Onset: The symptoms/episode rn began/occurred last night. Modifying factors: The symptoms are alleviated by holding head still, the symptoms are aggravated by nothing. Severity of symptoms: At their worst the symptoms were moderate in the emergency department the symptoms have improved. The patient has experienced a previous episode. Patient reports started last night with palpitations and not feeling well. Was feeling very anxious last night. Woke up this morning and immediately upon awakening felt dizziness and unsteady. Has had vertigo before due to ear problems. Patient reports last few days has felt ear pressure and fullness. Patient worse with change in position and head movement. Dizziness goes away if does not move or sits down. No other focal neurological deficit. No vision changes. No head injury. No chest pain or shortness of breath. No medication changes recently. Patient states this feels similar to his previous vertigo episodes just not as bad as it has been in the past. Historical: - Allergies: 07:53 No Known Allergies; ph - PMHx: 07:53 Diabetes - NIDDM; Hypertension; ph - PSHx: 07:56 Cholecystectomy; cervical disc; aa5 - Immunization history:: Adult Immunizations unknown. - Social history:: Smoking status: Patient denies any tobacco usage or history of. - Family history:: not pertinent. - Hospitalizations: : No recent hospitalization is reported. ROS: 08:19 Constitutional: Negative for fever, chills, and weight loss, Eyes: Negative for injury, rn pain, redness, and discharge, Neck: Negative for injury, pain, and swelling, Cardiovascular: Negative for chest pain, and edema, Respiratory: Negative for shortness of breath, cough, wheezing, and pleuritic chest pain, Abdomen/GI: Negative for abdominal pain, nausea, vomiting, diarrhea, and constipation, Back: Negative for injury and pain, MS/Extremity: Negative for injury and deformity, Skin: Negative for injury, rash, and discoloration, Neuro: Negative for headache, weakness, numbness, tingling, and seizure, Exam: 08:19 Constitutional: This is a well developed, well nourished patient who is awake, alert, rn and in no acute distress. Head/Face: Normocephalic, atraumatic. Cardiovascular: Regular rate and rhythm. No pulse deficits. Respiratory: No increased work of breathing, no retractions or nasal flaring. Abdomen/GI: Soft, non-tender MS/ Extremity: Pulses equal, no cyanosis. Neurovascular intact. Full, normal range of motion. Equal circumference. Neuro: Awake and alert, GCS 15, oriented to person, place, time, and situation. Cranial nerves II-XII grossly intact. Motor strength 5/5 in all extremities. Sensory grossly intact. Cerebellar exam normal. 09:38 ECG was reviewed by the Attending Physician. rn Vital Signs: 07:48 BP 149 / 89; Pulse 84; Resp 18 S; Pulse Ox 100% on R/A; Weight 129.27 kg (R); Height 6 aa5 ft. 2 in. (R); 09:16 BP 147 / 85; Pulse 76; Resp 18; Pulse Ox 98% on R/A; ph 10:22 BP 144 / 80; Pulse 75; Resp 16; Pulse Ox 99% on R/A; ph 10:50 Temp 97.5; ph 07:48 Body Mass Index 36.59 (129.27 kg, 187.96 cm) aa5 NIH Stroke Scale Scores: 08:00 NIHSS Score: 0 ph MDM: 07:47 Patient medically screened. rn 08:29 ED course: ct head negative per Dr. Solorio. rn 10:24 Differential diagnosis: cardiac arrhythmia, CVA, generalized weakness, rn hyperventilation, hypovolemia, idiopathic dizziness, TIA, vertigo. Data reviewed: vital signs, nurses notes, lab test result(s), EKG, radiologic studies, CT scan, MRI, plain films, and as a result, I will discharge patient. Counseling: I had a detailed discussion with the patient and/or guardian regarding the historical points, exam findings, and any diagnostic results supporting the discharge/admit diagnosis, lab results, radiology results, the need for outpatient follow up, to return to the emergency department if symptoms worsen or persist or if there are any questions or concerns that arise at home. Special discussion: I discussed with the patient/guardian in detail that at this point there is no indication for admission to the hospital. It is understood, however, that if the symptoms persist or worsen the patient needs to return immediately for re-evaluation. Based on the history and exam findings, there is no indication for further emergent testing or inpatient evaluation. I discussed with the patient/guardian the need to see the neurologist for further evaluation of the symptoms. I discussed with the patient/guardian the need to see the primary care provider for further evaluation of the symptoms. ED course: Workup completely negative including CT head, CT angio head and neck, MRI brain. Will discharge home with PCP and neurology follow-up. Patient has had vertigo several times in the past. Will DC home with return precautions.. 10/09 08:05 Order name: Basic Metabolic Panel; Complete Time: 09:08 rn 10/09 08:05 Order name: CBC with Diff; Complete Time: 09: rn 10/09 08:05 Order name: High Sensitivity Troponin; Complete Time: 09: rn 10/09 08:05 Order name: Protime (+inr); Complete Time: 09: rn 10/09 08:05 Order name: Ptt, Activated; Complete Time: 09: rn 10/09 08:05 Order name: BNP; Complete Time: 09:10/09 08:54 Order name: CREATININE WHOLE BLOOD; Complete Time: 09:08 EDMS 10/09 08:05 Order name: CT Head Angio; Complete Time: 09:10/09 08:05 Order name: CT Neck Angio; Complete Time: 09: rn 10/09 08:05 Order name: CT Stroke Brain w/o Contrast; Complete Time: 09:10/09 08:05 Order name: Stroke CXR 1 View; Complete Time: 10:23 rn 10/09 08:05 Order name: MRI - Brain Wo Cont; Complete Time: 09:08 rn 10/09 08:05 Order name: EKG; Complete Time: 08:10/09 08:05 Order name: Accucheck; Complete Time: 08:10/09 08:05 Order name: Cardiac monitoring; Complete Time: 08:10/09 08:05 Order name: EKG - Nurse/Tech; Complete Time: 09:16 rn 10/09 08:05 Order name: IV Saline Lock; Complete Time: 08:06 rn 10/09 08:05 Order name: Labs collected and sent; Complete Time: 08:06 rn 10/09 08:05 Order name: NPO; Complete Time: 08:06 rn 10/09 08:05 Order name: O2 Per Protocol; Complete Time: 08:06 rn 10/09 08:05 Order name: O2 Sat Monitoring; Complete Time: 08: rn 10/09 08:05 Order name: Stroke Swallow Screen; Complete Time: 08:06 rn EC:38 Rate is 68 beats/min. Rhythm is regular. QRS [place] is Normal. SC interval is normal. QRS rn interval is normal. QT interval is normal. No Q waves. T waves are Normal. No ST changes noted. Clinical impression: Normal ECG. Interpreted by me. Reviewed by me. Administered Medications: 09:05 Drug: NS 0.9% IV 1000 ml IV at 1000 ml once Route: IV; Rate: 1000 ml; Site: right ph antecubital; 10:50 Follow up: Response: No adverse reaction; IV Status: Completed infusion; IV Intake: ph 1000ml 09:05 Drug: Meclizine PO 50 mg PO once Route: PO; ph 10:49 Follow up: Response: No adverse reaction ph Disposition Summary: 10/09/23 10:25 Discharge Ordered Notes: Location: Home rn Problem: new rn Symptoms: have improved rn Condition: Stable rn Diagnosis - Vertigo rn - Dizziness and giddiness rn Followup: rn - With: Adithya Lebron MD - When: As needed - Reason: Recheck today's complaints, Re-evaluation by your physician Discharge Instructions: - Discharge Summary Sheet rn - Dizziness rn - Vertigo rn Forms: - Medication Reconciliation Form rn - Thank You Letter rn - 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 Dysarthria (speech clarity - read or repeat words) - 0(Normal) 11. Extinction and Inattention (visual/tactile/auditory/spatial/personal) - 0(No abnormality) 1a. Level of Consciousness (LOC) - 0(Alert) 1b. Level of Consciousness (LOC) (Month \T\ Age) - 0(Both) 1c. LOC Commands (Open \T\ Closes Eyes/Offset Plate Maker) - 0(Both) 2. Best Gaze (Lateral Gaze Paresis) - 0(Normal) 3. Visual Field Loss - 0(No visual loss) 4. Facial Palsy - 0(Normal) 5a. Left Arm: Motor (10-second hold) - 0(No drift) 5b. Right Arm: Motor (10-second hold) - 0(No drift) 6a. Left Leg: Motor (5-second hold - always test supine) - 0(No drift) 6b. Right Leg: Motor (5-second hold - always test supine) - 0(No drift) 7. Limb Ataxia (finger/nose \T\ heel/lassiter - test with eyes open) - 0(Absent) 8. Sensory Loss (pinprick arms/legs/face) - 0(Normal) 9. Best Language: Aphasia (description/naming/reading) - 0(No aphasia) Initials: ph Signatures: Dispatcher [employer] EDMarcos Garcia MD MD rn Calderon, Audri, RN RN aa5 Elaine Phoenix RN RN ph Corrections: (The following items were deleted from the chart) 08:21 08:19 Constitutional: Negative for fever, chills, and weight loss, Eyes: rn Negative for injury, pain, redness, and discharge, Neck: Negative for injury, pain, and swelling, Cardiovascular: Negative for chest pain, palpitations, and edema, Respiratory: Negative for shortness of breath, cough, wheezing, and pleuritic chest pain, Abdomen/GI: Negative for abdominal pain, nausea, vomiting, diarrhea, and constipation, Back: Negative for injury and pain, MS/Extremity: Negative for injury and deformity, Skin: Negative for injury, rash, and discoloration, Neuro: Negative for headache, weakness, numbness, tingling, and seizure, rn
[2023-10-09 14:24] VITALS: BP 144/80; TEMP 97.5; O2SAT 99
--- NOTE | 2023-10-10 13:26 | EKG ---
Test Date: 2023-10-09 Test Time: 08:59:44 Dietist: NICOLE MEASUREMENT RESULTS: Intervals: Rate: 68 IL: 144 QRSD: 104 QT: 398 QTc: 423 [place]: P: 51 IL: 144 QRS: 26 T: 26 INTERPRETIVE STATEMENTS: Normal sinus rhythm Normal ECG Compared to ECG 06/14/2022 09:56:30 No significant changes Electronically Signed On 10-10-23 13:23:47 ARCHITECTURAL DESIGN PROFESSOR by Alireza Barrow
== END ==
LOC: ER 07:39
DX: R42 Dizziness and giddiness (principal); R00.2 Palpitations; I10 Essential (primary) hypertension; E11.9 Type 2 diabetes mellitus without complications
CPT/HCPCS: 96361; 93005; 85025; 80048; 36415; 85610; 82565; 85730; 84484; 83880; 70496; 70498; 70450; 71045; 70551; 96360; 99285; Q9967; J8597; J7030

== ENCOUNTER 2025-05-13 08:01 | Emergency (ER) | payer OTHER ==
--- OUTSIDE RECORDS SUMMARY | 2025-05-13 08:04 | XMS REPORT | Continuity of Care Document ---
Author Name Unknown Address [address] [facility] [address] [place] [address] Organization [facility] [place] Address [address] [facility] [address] [place] [address] Care Team Providers Care Java J2Ee Software Engineer Name Role Phone Domingo Hassan Primary Care Physician [phone] [place] NICK, Anita Attending Clinician [phone] Oliver Mckenzie MD Attending Clinician [phone] FRANSIOC VANN Attending Clinician Fransico Bourgeois Attending Clinician [phone] Payers Payer Name Policy Type Policy Number Effective Date Expirati on Date Source [place] OUT OF STATE [id number] 2022 00:00:00 Problems Condition Name Condition Details Condition Category Status Onset Date Resolution Date Last Treatment Date Treating Clinician Comments Source No known active problems No known active problems Disease [facility] Social History Social Habit Start Date Stop Date Quantity Comments Source Exposure to SARS-CoV-2 (event) 2023-02-03 00:00:00 2023-02-13 14:49:00 Unable to assess [facility] Alcohol intake 2023-02-13 00:00:00 2023-02-13 00:00:00 Lifetime non-drinker (finding) [facility] Tobacco use and exposure 2023-01-01 00:00:00 2023-01-01 00:00:00 Smokeless tobacco non-user [facility] Sex Ass[birth year] At 1965 00:00:00 1965 00:00:00 [facility] Smoking Status Start Date Stop Date Source Never smoked tobacco [facility] Medications Ordered Medication Name Filled Medication Name Start Date Stop Date Current Medication? Ordering Clinician Indication Dosage Frequency Signature (SIG) Comments Components Source methylPREDN ISolone (Medrol Dospak) 4 MG tablets 10-16 00:00: 00 Yes [id number] Follow schedule on package instructio ns [facility] Vital Signs Vital Name Observation Time Observation Value Comments S ource Body height 2023-02-13 20:08:00 188 cm [facility] Body weight 2023-02-13 20:08:00 124.739 kg [facility] BMI 2023-02-13 20:08:00 35.31 kg/m2 [facility] Systolic blood pressure 2023-01-15 15:50:00 148 mm[Hg] [facility] Diastolic blood pressure 2023-01-15 15:50:00 80 mm[Hg] [facility] Heart rate 2023-01-15 15:50:00 74 /min [facility] Body temperature 2023-01-15 15:50:00 36.56 Brittny [facility] Body height 2023-01-15 15:50:00 188 cm [facility] Body weight 2023-01-15 15:50:00 131.09 kg [facility] BMI 2023-01-15 15:50:00 37.11 kg/m2 [facility] Systolic blood pressure 2023-01-01 19:26:00 152 mm[Hg] [facility] Diastolic blood pressure 2023-01-01 19:26:00 82 mm[Hg] [facility] Heart rate 2023-01-01 19:26:00 72 /min [facility] Body temperature 2023-01-01 19:26:00 36.67 Brittny [facility] Body height 2023-01-01 19:26:00 188 cm [facility] Body weight 2023-01-01 19:26:00 129.729 kg [facility] BMI 2023-01-01 19:26:00 36.72 kg/m2 [facility] ealt Body height 2022-10-16 19:18:00 188 cm [facility] Body weight 2022-10-16 19:18:00 127.007 kg [facility] BMI 2022-10-16 19:18:00 35.95 kg/m2 [facility] ealth Procedures Procedure Date / Time Performed Performing Clinicia n Source POCT GLUCOSE 2023-01-15 15:59:13 Anita Trejo [facility] Start Date/Time End Date/Time Encounter Type Admission Type Attending Clinicians Care Facility Care Department Encounter ID Source 2023-01-30 17:47:17 Outpatient [facility] [id number] [facility] 2023-01-24 15:46:00 Outpatient [facility] ER [id number] [facility] 2023-01-17 12:48:07 Outpatient [facility] ER [id number] [facility] 2023-01-14 09:59:42 Outpatient [facility] ER [id number] [facility] 2023-01-09 11:57:28 Outpatient [facility] ER [id number] [facility] 2023-01-02 16:12:04 Outpatient [facility] ER [id number] [facility] 2022-12-30 09:36:28 Outpatient [facility] ER [id number] [facility] 2022-12-25 09:00:39 Outpatient [facility] [id number] [facility] 2022-11-07 10:25:08 Outpatient [facility] ER [id number] [facility] 2022-10-16 09:47:19 Outpatient [facility] ER [id number] [facility] 2022-10-15 11:40:43 Outpatient [facility] [id number] [facility] 2022-10-11 10:34:34 Outpatient [facility] [id number] [facility] 2022-10-10 09:54:55 Outpatient [facility] ER [id number] [facility] 2023-02-13 15:00:00 2023-02-13 15:17:53 Office Visit Anita Trejo [facility] [id number] [facility] 2023-02-06 15:00:00 2023-02-06 15:00:00 Outpatient ANITA TREJO [facility] [id number] [facility] 2023-01-15 11:00:00 2023-01-15 15:36:44 Procedure Visit ANITA TREJO [facility] [id number] [facility] 2023-01-15 10:00:00 2023-01-15 15:36:44 Outpatient ANITA TREJO [facility] [id number] [facility] 2023-01-01 14:20:00 2023-01-01 15:19:43 Office Visit Anita Trejo [facility] [id number] [facility] 2022-11-08 10:15:00 2022-11-08 10:24:30 Office Visit Oliver Mckenzie [facility] [id number] [facility] 2022-10-30 08:39:00 2022-10-30 23:59:00 Outpatient FRANSICO VANN [address] [facility] 2022-10-16 13:30:00 2022-10-16 14:24:37 Office Visit Fransico Vann [facility] [id number] [facility] 2022-10-16 00:00:00 2022-10-16 14:10:09 Outpatient OLIVER MCKENZIE [facility] [id number] [facility] 2022-10-16 13:25:00 2022-10-16 13:52:35 Outpatient OLIVER MCKENZIE [facility] [id number] [facility] Results Test Description Test Time Test Comments Results Result Co mments Source [facility]
[2025-05-13 09:08] LABS: Absolute Lymphocytes (CBC) 1.1 K/uL (0.7-4.9); Hematocrit 49.3 % (39.6-49.0); Hemoglobin 17.1 g/dL (13.6-17.9); MCH 31.7 pg (27.0-35.0); MCHC 34.6 g/dL (32.0-36.0); MCV 91.5 fL (80-100); MPV 7.8 fL (7.6-11.3); Nucleated RBC Absolute Count 0.0 (0-0); Nucleated Red Blood Cells % 0.1 % (0-0); RBC Red Blood Cell Count 5.39 M/uL (4.33-5.43); White Blood Count 5.10 thou/uL (4.3-10.9)
--- NOTE | 2025-05-13 09:16 | RAD REPORT ---
EXAM: Chest Single View HISTORY: 59 years Male CHEST PAIN COMPARISON: No prior exams FINDINGS: LUNGS/PLEURA: The lungs are clear. No pleural effusions or pneumothorax. No pulmonary edema. CARDIAC/MEDIASTINUM: The cardiac silhouette is within normal limits. UPPER ABDOMEN: No significant abnormality. BONES: No acute abnormality. LINES/TUBES/OTHER: N/A IMPRESSION: No evidence of acute cardiopulmonary disease.
[2025-05-13 09:31] LABS: Anion Gap 6.1 mEq/L (5.0-15.0); BUN Blood Urea Nitrogen 17.0 mg/dL (7-18); Glucose Level 160.0 mg/dL (74-106); Potassium 4.1 mEq/L (3.5-5.1); Troponin High Sensitivity 25.1 pg/mL (<58.9)
--- NOTE | 2025-05-13 10:09 | ER ---
Nurse's Notes [facility] Name: Darrell Adams Age: 59 yrs Sex: Male : 1965 Arrival Date: 05/13/2025 Time: 08:01 Bed 16 Private MD: Diagnosis: Diffuse otitis externa, right ear Presentation: 05/13 08:18 Chief complaint: Patient states: Intermittent dizziness x 3 weeks, PCP started jl7 antibiotics and steroids for ear infection, was feeling better then symptoms started again 3 days ago with palpitations. Coronavirus screen: At this time, the client does not indicate any symptoms associated with coronavirus-19. Ebola Screen: No symptoms or risks identified at this time. Initial Sepsis Screen: Does the patient meet any 2 criteria? No. Patient's initial sepsis screen is negative. Does the patient have a suspected source of infection? No. Patient's initial sepsis screen is negative. Risk Assessment: Do you want to hurt yourself or someone else? Patient reports no desire to harm self or others. Onset of symptoms was May 10, 2025. 08:18 Method Of Arrival: Ambulatory jl7 08:18 Acuity: NOBLE 3 jl7 Triage Assessment: 08:23 General: Appears in no apparent distress. uncomfortable, Behavior is calm, cooperative, jl7 appropriate for age. Pain: Denies pain. EENT: Ear canal inflammation. Historical: - Allergies: 08:23 No Known Allergies; jl7 - PMHx: 08:23 Diabetes - NIDDM; Hypertension; jl7 - PSHx: 08:23 Cervical disc; Cholecystectomy; jl7 - Immunization history:: Adult Immunizations unknown. - Infectious Disease History:: Denies. - Social history:: Smoking status: unknown. Screenin:32 [facility] ED Fall Risk Assessment (Adult) History of falling in the last 3 months, kc6 including since admission No falls in past 3 months (0 pts) Confusion or Disorientation No (0 pts) Intoxicated or Sedated No (0 pts) Impaired Gait No (0 pts) Mobility Assist Device Used No (0 pt) Altered Elimination No (0 pt) Score/Fall Risk Level 0 - 2 = Low Risk Oriented to surroundings. Abuse screen: Denies threats or abuse. Denies injuries from another. Nutritional screening: No deficits noted. Tuberculosis screening: No symptoms or risk factors identified. Assessment: 08:30 General: Appears in no apparent distress. comfortable, well groomed, well developed, kc6 Behavior is calm, cooperative, appropriate for age. Pain: Denies pain. Neuro: Level of Consciousness is awake, alert, obeys commands, Oriented to person, place, time, situation, Appropriate for age Reports dizziness. Cardiovascular: Reports palpitations, Denies chest pain, Heart tones S1 S2 present Capillary refill < 3 seconds Rhythm is regular. Respiratory: Airway is patent Trachea midline Respiratory effort is even, unlabored, Respiratory pattern is regular, symmetrical. GI: No signs and/or symptoms were reported involving the gastrointestinal system. : No signs and/or symptoms were reported regarding the genitourinary system. EENT: Reports ringing in left ear and right ear. Derm: No signs and/or symptoms reported regarding the dermatologic system. Skin is intact, is healthy with good turgor, Skin is pink, warm \T\ dry. Musculoskeletal: No signs and/or symptoms reported regarding the musculoskeletal system. Circulation, motion, and sensation intact. Range of motion: intact in all extremities. 09:30 Reassessment: Patient appears in no apparent distress at this time. No changes from kc6 previously documented assessment. Patient and/or family updated on plan of care and expected duration. Pain level reassessed. Patient is alert, oriented x 3, equal unlabored respirations, skin warm/dry/pink. Vital Signs: 08:18 BP 162 / 92; Pulse 97; Resp 17; Pulse Ox 100% ; jl7 08:24 Weight 124.74 kg; Height 6 ft. 2 in. ; Pain 0/10; jl7 08:24 Temp 98.3; jl7 09:11 BP 138 / 77; Pulse 84; Resp 16 S; Pulse Ox 99% on R/A; kc6 10:12 BP 131 / 68; Pulse 76; Resp 20 S; Pulse Ox 95% on R/A; kc6 08:24 Body Mass Index 35.31 (124.74 kg, 187.96 cm) jl7 08:24 Pain Scale: Adult jl7 ED Course: 08:05 Patient arrived in ED. al6 08:06 Arron Gomez [facility]NP-C [facility]. dr5 08:06 Daron Bucio MD is Attending Physician. dr5 08:23 Triage completed. jl7 08:23 Arm band placed on right wrist. jl7 08:31 Tania Jaramillo, RN is Primary Nurse. kc6 08:32 Patient has correct armband on for positive identification. Bed in low position. Call kc6 light in reach. Side rails up X 1. Pulse ox on. NIBP on. Door closed. Noise minimized. Lights dimmed. Pillow given. Verbal reassurance given. 08:32 Patient maintains SpO2 saturation greater than 95% on room air. kc6 09:11 Inserted saline lock: 20 gauge in left antecubital area, using aseptic technique. Blood af3 collected. Flushed with 10 mL NS. 09:11 Initial lab(s) drawn, by me, sent to lab. af3 09:12 XRAY Chest (1 view) In Process Unspecified. EDMS 10:08 Chelo Lomax MD is Referral Physician. dr5 10:34 No provider procedures requiring assistance completed. IV discontinued, intact, kc6 bleeding controlled, No redness/swelling at site. Pressure dressing applied. Administered Medications: No medications were administered Medication: 10:35 VIS not applicable for this client. kc6 Outcome: 10:08 Discharge ordered by . dr5 10:35 Discharged to home ambulatory, kc6 10:35 Condition: good 10:35 Discharge instructions given to patient, Instructed on discharge instructions, follow up and referral plans. medication usage, Demonstrated understanding of instructions, follow-up care, medications, Prescriptions given X 1, 10:35 Patient left the ED. kc6 Signatures: Dispatcher [employer] EDMS Emily Zimmerman RN RN jl7 Tania Jaramillo, RN RN kc6 Mraichuy Colon RN RN af3 Arron Gomez, MATT-C CARAMEL MAKER-5 Mackenzie Martins
--- NOTE | 2025-05-13 10:09 | EDPHYS ---
Physician Documentation [facility] [place] Name: Darrell Adams Age: 59 yrs Sex: Male : 1965 Arrival Date: 05/13/2025 Time: 08:01 Bed 16 Private MD: ED Physician Daron Bucio HPI: 05/13 10:10 This 59 yrs old Male presents to ER via Ambulatory with complaints of Ear dr5 Pain, High Blood Pressure. 10:10 The patient presents with a fullness, swelling, tenderness. The complaints affect the dr5 right ear and left ear. Onset: The symptoms/episode began/occurred acutely. 10:21 Patient is a 59-year-old male with history of hypertension and diabetes coming in with dr5 3 weeks of ear pain bilaterally. Patient reports that he was treated with antibiotics p.o. and steroids p.o. for bilateral ear infection and closing of ear canal. Patient reports he mildly got better. Patient also reports that he has palpitations that he notices at night when he is laying flat. Patient denies chest pain, shortness of breath, nausea, vomiting, diarrhea. Historical: - Allergies: 08:23 No Known Allergies; jl7 - PMHx: 08:23 Diabetes - NIDDM; Hypertension; jl7 - PSHx: 08:23 Cervical disc; Cholecystectomy; jl7 - Immunization history:: Adult Immunizations unknown. - Infectious Disease History:: Denies. - Social history:: Smoking status: unknown. ROS: 10:21 Constitutional: as per hpi dr5 Exam: 10:21 Constitutional: This is a well developed, well nourished patient who is awake, alert, dr5 and in no acute distress. Head/Face: Normocephalic, atraumatic. Eyes: Pupils equal round and reactive to light, extra-ocular motions intact. Lids and lashes normal. Conjunctiva and sclera are non-icteric and not injected. Cornea within normal limits. Periorbital areas with no swelling, redness, or edema. Neck: Trachea midline, no thyromegaly or masses palpated, and no cervical lymphadenopathy. Supple, full range of motion without nuchal rigidity, or vertebral point tenderness. No Meningismus. Chest/axilla: Normal chest wall appearance and motion. Nontender with no deformity. No lesions are appreciated. Cardiovascular: Regular rate and rhythm with a normal S1 and S2. Normal PMI, no JVD. No pulse deficits. Respiratory: Lungs have equal breath sounds bilaterally, clear to auscultation. No rales, rhonchi or wheezes noted. No increased work of breathing, no retractions or nasal flaring. Back: No spinal tenderness. No costovertebral tenderness. Full range of motion. Skin: Warm, dry with normal turgor. Normal color with no rashes, no lesions, and no evidence of cellulitis. 10:21 ENT: External ear(s): are unremarkable, Ear canal(s): erythema, bilaterally, purulent discharge, that is minimal, bilaterally, swelling, that is minimal, bilaterally, TM's: erythema, Nose: is normal, Mouth: is normal, Vital Signs: 08:18 BP 162 / 92; Pulse 97; Resp 17; Pulse Ox 100% ; jl7 08:24 Weight 124.74 kg; Height 6 ft. 2 in. ; Pain 0/10; jl7 08:24 Temp 98.3; jl7 09:11 BP 138 / 77; Pulse 84; Resp 16 S; Pulse Ox 99% on R/A; kc6 10:12 BP 131 / 68; Pulse 76; Resp 20 S; Pulse Ox 95% on R/A; kc6 08:24 Body Mass Index 35.31 (124.74 kg, 187.96 cm) jl7 08:24 Pain Scale: Adult jl7 MDM: 08:06 Medical Screening Exam initiated dr5 10:21 Differential diagnosis: otitis media, otitis externa, ruptured TM, foreign body, dr5 NSTEMI, STEMI. Data reviewed: vital signs, nurses notes, lab test result(s), cardiac enzymes, troponin i, CBC, white blood cell count, hemoglobin, hematocrit, platelets, electrolytes, sodium, potassium, chloride, serum bicarbonate, BUN, creatinine, serum glucose, EKG, radiologic studies, plain films. Consideration of Admission/Observation Escalation of care including admission/observation considered. Escalation considered patient found to have electrolyte abnormality or elevated troponin. Care significantly affected by the following chronic conditions: Diabetes, Hypertension. Care significantly affected by the following Social Determinants of Health: Poor access to healthcare and/or lack of insurance, Poor access to transportation, Problems related to employment. Counseling: I had a detailed discussion with the patient and/or guardian regarding the historical points, exam findings, and any diagnostic results supporting the discharge/admit diagnosis, the presence of at least one elevated blood pressure reading (>120/80) during this emergency department visit, lab results, the need for outpatient follow up, for definitive care, a family practitioner, to return to the emergency department if symptoms worsen or persist or if there are any questions or concerns that arise at home. Special discussion: Based on the patient's Hx, exam, and Dx evaluation, there is no indication for emergent surgery or inpatient Tx. It is understood by the patient/guardian that if the Sx's persist or worsen they need to return immediately for re-evaluation. I have referred the patient to see his PCP for further evaluation of high blood pressure. I discussed with the patient/guardian in detail that at this point there is no indication for admission to the hospital. It is understood, however, that if the symptoms persist or worsen the patient needs to return immediately for re-evaluation. Based on the history and exam findings, there is no indication for further emergent testing or inpatient evaluation. I discussed with the patient/guardian the need to see the ENT specialist for further evaluation of the symptoms. ED course: Cardiac workup was negative. Recommended patient follow debug technician if patient continues having intermittent palpitations. Patient has mild erythema to bilateral ear canals. Will cover patient with Ciprodex. Recommended follow-up with ENT if ears are still continue given problems. All questions answered. All results printed and given to patient. Strict ER precautions. 05/13 08:44 Order name: Basic Metabolic Panel; Complete Time: : [facility] 05/13 08:44 Order name: CBC with Diff; Complete Time: : [facility] 05/13 08:44 Order name: Troponin HS; Complete Time: : [facility] 05/13 08:44 Order name: XRAY Chest (1 view); Complete Time: : [facility] 05/13 08:44 Order name: EKG; Complete Time: : [facility] 05/13 08:44 Order name: Cardiac monitoring; Complete Time: [facility] 05/13 08:44 Order name: EKG - Nurse/Tech; Complete Time: [facility] 05/13 08:44 Order name: IV Saline Lock; Complete Time: : [facility] 05/13 08:44 Order name: Labs collected and sent; Complete Time: [facility] 05/13 08:44 Order name: O2 Per Protocol; Complete Time: 08:46 dr5 05/13 08:44 Order name: O2 Sat Monitoring; Complete Time: :46 dr5 EC:35 Rate is 89 beats/min. Rhythm is regular. QRS [place] is Normal. [place] interval is normal at dr5 138 msec. QRS interval is normal at 94 msec. QT interval is normal at 368 msec. Clinical impression: Normal ECG and No evidence of ischemia. Administered Medications: No medications were administered Disposition Summary: 05/13/25 10:08 Discharge Ordered Notes: Location: Home dr5 Condition: Stable dr5 Diagnosis - Diffuse otitis externa, right ear dr5 Followup: dr5 - With: Emergency Department - When: As needed - Reason: Worsening of condition Followup: dr5 - With: Chelo Lomax MD - When: 1 - 2 days - Reason: Recheck today's complaints, Continuance of care, Re-evaluation by your physician Discharge Instructions: - Discharge Summary Sheet dr5 - Otitis Externa dr5 - Palpitations dr5 Forms: - Medication Reconciliation Form dr5 - Antibiotic Education dr5 - Patient Portal Instructions dr5 - Leadership Thank You Letter dr5 Prescriptions: - Ciprodex 0.3-0.1 % Otic drops, suspension - instill 4 drops OTIC route every 12 hours for 7 days , for ears ONLY; 70 drop; dr5 Refills: 0, Product Selection Permitted Addendum: 05/17/2025 14:00 Co-signature as Attending Physician, Daron Bucio MD I agree with the assessment and c randolph plan of care. Signatures: Dispatcher [employer] Daron Ball MD MD cha Leal, Jahala, RN RN jl7 Tania Jaramillo RN RN kc6 Arron Gomez, MARKETING REGIONAL CONSULTANT-C MARKETING REGIONAL CONSULTANT-Cdr5
[2025-05-13 12:06] VITALS: TEMP 98.3
[2025-05-13 12:10] VITALS: BP 131/68; O2SAT 95
== END 2025-05-13 10:35 | disposition home or self-care (01) ==
LOC: ER 08:01
DX: H60.311 Diffuse otitis externa, right ear (principal)
CPT/HCPCS: 36415; 71045; 80048; 84484; 85025; 93005; 99284